=== PATIENT | female | born 1985 | race Caucasian/White ===

== ENCOUNTER 2017-09-08 14:21 | Emergency (ER) | payer SELFPAY ==
--- NOTE | 2017-09-08 14:53 | EDPHYS ---
Physician Documentation [facility] Name: Nayely Joe Age: 32 yrs Sex: Female : 1985 Arrival Date: 09/08/2017 Time: 14:25 Bed 7 Private MD: None, None ED Physician Josesito Barber HPI: 09/08 14:43 This 32 yrs old Female presents to ER via Ambulatory with complaints of gs Numbness Of Face. 14:43 The patient's problem is reported as a facial droop, on left. Onset: The gs symptoms/episode began/occurred yesterday. Duration: The episode is continuous. The symptoms are alleviated by nothing. The symptoms are aggravated by nothing. Associated signs and symptoms: Pertinent negatives: agitation, ataxia, blurred vision, combativeness, headache, nausea, weakness. Severity of symptoms: At their worst the symptoms were moderate in the emergency department the symptoms are unchanged. The patient has not experienced similar symptoms in the past. Historical: - Allergies: 14:27 SHELLFISH; sv - Home Meds: 14:27 None [Active]; sv - PMHx: 14:27 None; sv - PSHx: 14:27 breast reduction; sv - Immunization history:: Adult Immunizations up to date. - Social history:: Smoking status: Patient/guardian denies using tobacco. - Ebola Screening: : No symptoms or risks identified at this time. ROS: 14:43 All other systems are negative. gs Exam: 14:43 Head/Face: Normocephalic, atraumatic. gs 14:43 Eyes: Pupils equal round and reactive to light, extra-ocular motions intact. Lids and lashes normal. Conjunctiva and sclera are non-icteric and not injected. Cornea within normal limits. Periorbital areas with no swelling, redness, or edema. ENT: Nares patent. No nasal discharge, no septal abnormalities noted. Tympanic membranes are normal and external auditory canals are clear. Oropharynx with no redness, swelling, or masses, exudates, or evidence of obstruction, uvula midline. Mucous membranes moist. Neck: Trachea midline, no thyromegaly or masses palpated, and no cervical lymphadenopathy. Supple, full range of motion without nuchal rigidity, or vertebral point tenderness. No Meningismus. Chest/axilla: Normal chest wall appearance and motion. Nontender with no deformity. No lesions are appreciated. Cardiovascular: Regular rate and rhythm with a normal S1 and S2. No gallops, murmurs, or rubs. Normal PMI, no JVD. No pulse deficits. Respiratory: Lungs have equal breath sounds bilaterally, clear to auscultation and percussion. No rales, rhonchi or wheezes noted. No increased work of breathing, no retractions or nasal flaring. Abdomen/GI: Soft, non-tender, with normal bowel sounds. No distension or tympany. No guarding or rebound. No evidence of tenderness throughout. Back: No spinal tenderness. No costovertebral tenderness. Full range of motion. Skin: Warm, dry with normal turgor. Normal color with no rashes, no lesions, and no evidence of cellulitis. MS/ Extremity: Pulses equal, no cyanosis. Neurovascular intact. Full, normal range of motion. 14:43 Constitutional: The patient appears in no acute distress, alert, awake. 14:43 Eyes: 14:43 Neuro: Orientation: is normal, Mentation: is normal, Memory: is normal, Cranial nerves: normal except 7, extraocular movements are intact, facial droop noted on left, with forehead involved. Vital Signs: 14:27 BP 142 / 102; Pulse 96; Resp 18; Temp 98.4; Pulse Ox 100% ; Weight 117.93 kg; Height 5 sv ft. 2 in. (157.48 cm); Pain 0/10; 15:04 BP 134 / 99; Pulse 87; Resp 18; Temp 98.2; Pulse Ox 99% on R/A; Pain 0/10; ph 14:27 Body Mass Index 47.55 (117.93 kg, 157.48 cm) sv MDM: 14:40 Patient medically screened. 14:43 Differential diagnosis: solis's palsy. Differential diagnosis: paralysis, drug effects. Data reviewed: vital signs, nurses notes. Response to treatment: There is no appreciated change of the patient's symptoms at this time, and as a result, I will discharge patient. 14:53 Counseling: I had a detailed discussion with the patient and/or guardian regarding: the gs historical points, exam findings, and any diagnostic results supporting the discharge/admit diagnosis. Special discussion: I have referred the patient to see his PCP for further evaluation of high blood pressure. Administered Medications: No medications were administered Disposition: 09/08/17 14:53 Discharged to Home. Impression: Solis's palsy. - Condition is Stable. - Discharge Instructions: Solis Palsy, Managing Your High Blood Pressure. - Prescriptions for Prednisone 20 mg Oral Tablet - take 2 tablet by ORAL route once daily for 5 days; 10 tablet. - Work release form, Medication Reconciliation Form, Thank You Letter, Antibiotic Education, Prescription Opioid Use form. - Follow up: Private Physician; When: 2 - 3 days; Reason: Re-evaluation by your physician. Signatures: Sheron Felder RN RN Tara Rodriguez RN RN ph Barber, MD KRISTOPHER Bellamy Corrections: (The following items were deleted from the chart) 15:04 14:53 09/08/2017 14:53 Discharged to Home. Impression: Solis's palsy. Condition is ph Stable. Forms are Medication Reconciliation Form, Thank You Letter, Antibiotic Education, Prescription Opioid Use. Follow up: Private Physician; When: 2 - 3 days; Reason: Re-evaluation by your physician. gs
--- NOTE | 2017-09-08 14:53 | ER ---
Nurse's Notes [facility] Name: Nayely Joe Age: 32 yrs Sex: Female : 1985 Arrival Date: 09/08/2017 Time: 14:25 Bed 7 Private MD: None, None Diagnosis: Solis's palsy Presentation: 09/08 14:25 Presenting complaint: Patient states: left side facial droop noticed around [id number] sv yesterday before going to work. Pt stated that her left eye doesn't shut and left side of tongue was numb. Transition of care: patient was not received from another setting of care. Onset of symptoms was September 07, 2017. 14:25 Method Of Arrival: Ambulatory sv 14:25 Acuity: TAINA 3 sv 14:26 Risk Assessment: Do you want to hurt yourself or someone else? Patient reports no sv desire to harm self or others. Initial Sepsis Screen: Does the patient meet any 2 criteria? No. Patient's initial sepsis screen is negative. Does the patient have a suspected source of infection? No. Patient's initial sepsis screen is negative. Care prior to arrival: None. Historical: - Allergies: 14:27 SHELLFISH; sv - Home Meds: 14:27 None [Active]; sv - PMHx: 14:27 None; sv - PSHx: 14:27 breast reduction; sv - Immunization history:: Adult Immunizations up to date. - Social history:: Smoking status: Patient/guardian denies using tobacco. - Ebola Screening: : No symptoms or risks identified at this time. Screenin:43 Abuse screen: Denies threats or abuse. Denies injuries from another. Nutritional hb screening: No deficits noted. Tuberculosis screening: No symptoms or risk factors identified. Fall Risk None identified. Assessment: 14:31 Reassessment: Dr. Barber notified of patient's arrival/ symptoms. ss 14:41 General: Appears in no apparent distress. comfortable, obese, well groomed, Behavior is ph cooperative, appropriate for age, anxious, Denies fever, feeling ill. Pain: Denies pain. Neuro: Level of Consciousness is awake, alert, obeys commands, Oriented to person, place, time, situation, Fretted Instrument Repairer are equal bilaterally Moves all extremities. Full function Gait is steady, Speech is normal, Facial droop on left, Pupils are PERRLA, Reports. Cardiovascular: Capillary refill < 3 seconds Patient's skin is warm and dry. Respiratory: Airway is patent Respiratory effort is even, unlabored, Respiratory pattern is regular, symmetrical. GI: No signs and/or symptoms were reported involving the gastrointestinal system. Derm: Skin is intact, is healthy with good turgor, Skin is pink, warm \T\ dry. Musculoskeletal: Circulation, motion, and sensation intact. Range of motion: intact in all extremities. 15:03 Reassessment: Patient appears in no apparent distress at this time. Patient and/or ph family updated on plan of care and expected duration. Pain level reassessed. Patient is alert, oriented x 3, equal unlabored respirations, skin warm/dry/pink. Pt prescribed steroids and discharged home. Vital Signs: 14:27 BP 142 / 102; Pulse 96; Resp 18; Temp 98.4; Pulse Ox 100% ; Weight 117.93 kg; Height 5 sv ft. 2 in. (157.48 cm); Pain 0/10; 15:04 BP 134 / 99; Pulse 87; Resp 18; Temp 98.2; Pulse Ox 99% on R/A; Pain 0/10; ph 14:27 Body Mass Index 47.55 (117.93 kg, 157.48 cm) sv ED Course: 14:25 Patient arrived in ED. sb2 14:25 None, None is Private Physician. sb2 14:27 Triage completed. sv 14:28 Arm band placed on left wrist. sv 14:33 Tara Rodriguez RN is Primary Nurse. ph 14:34 Josesito Barber MD is Attending Physician. gs 14:43 Patient has correct armband on for positive identification. Bed in low position. Call hb light in reach. Side rails up X 1. 14:44 No provider procedures requiring assistance completed. Patient did not have IV access ph during this emergency room visit. Administered Medications: No medications were administered Outcome: 14:53 Discharge ordered by . gs 15:03 Discharged to home ambulatory. ph 15:03 Condition: good 15:03 Discharge instructions given to patient, Instructed on discharge instructions, follow up and referral plans. medication usage, Demonstrated understanding of instructions, follow-up care, medications, Prescriptions given X 1. 15:04 Patient left the ED. ph Signatures: Sheron Felder RN RN sv Cori Bower RN RN Tara Rodriguez RN RN ph Ping Tong, RN RN Josesito Barber MD MD Mary Nunes 2
[2017-09-08 15:18] VITALS: BP 134/99; TEMP 98.2; O2SAT 99
== END 2017-09-08 15:04 | disposition home or self-care (01) ==
LOC: ER 14:21
DX: G51.0 Bell's palsy (principal)
CPT/HCPCS: 99282

== ENCOUNTER 2018-04-05 23:14 | Emergency (ER) | payer SELFPAY ==
--- NOTE | 2018-04-05 23:29 | ER ---
Nurse's Notes [facility] Name: Nayely Joe Age: 33 yrs Sex: Female : 1985 Arrival Date: 04/05/2018 Time: 23:18 Bed Waiting Private MD: Diagnosis: Presentation: 04/05 23:27 Note pt states she was told to come here for rabies injections instructed pt we do not bb give rabies injections and she should contact the health department for [facility] pt choose to leave without being seen. ED Course: 23:18 Patient arrived in ED. es Administered Medications: No medications were administered Outcome: 23:28 Patient left the ED. bb Signatures: Puja Abdi Brenda, RN RN bb
== END 2018-04-05 23:28 | disposition left against medical advice (07) ==
LOC: ER 23:14
DX: Z53.21 Procedure and treatment not carried out due to patient leaving prior to being seen by health care provider (principal)